=== PATIENT | female | born 1950 | race Caucasian/White ===

== ENCOUNTER 2021-08-21 09:00 | Inpatient (IN) | payer OTHER ==
[2021-08-15 10:31] VITALS: BMI 30.2
[2021-08-21] MEDS ORDERED: BUPIVACAINE LIPOSOME/PF (EXPAREL) 266 MG/20 ML VIAL ONE (13:43)
[2021-08-21] MEDS ORDERED: MIDAZOLAM HCL 2 MG/2 ML SINGLE DOSE VIAL ONE ×2 (13:43→18:24)
[2021-08-21] MEDS ORDERED: BUPIVACAINE HCL/PF 0.5% (5MG/ML) 10 ML VIAL ONE (13:44)
[2021-08-21] MEDS ORDERED: SODIUM CHLORIDE 0.9% P/F 10 ML VIAL IJ ONE (13:44)
[2021-08-21] MEDS ORDERED: VANCOMYCIN 1,000 MG VIAL (RESTRICTED TO ID ONLY) ONE ×2 (14:09→16:20)
[2021-08-21] MEDS ORDERED: oxyCODONE HCL 5 MG TABLET PO PRN (14:46)
[2021-08-21] MEDS ORDERED: ACETAMINOPHEN 1000 MG/100 ML BAG IVPB ONE (14:46)
[2021-08-21] MEDS ORDERED: ONDANSETRON 4 MG/2 ML VIAL IVPUSH PRN ×2 (14:46→19:41)
[2021-08-21] MEDS ORDERED: LACTATED RINGERS SOLUTION 1,000 ML IV SCH ×2 (15:00→19:45)
[2021-08-21] MEDS ORDERED: BUPIVICAINE 0.25%/MORPH PF/KETOROLAC - 51ML DISP.SYRINGE IA ONE ×3 (15:54→19:15)
[2021-08-21] MEDS ORDERED: BUPIVACAINE HCL 50 ML ONE (16:04)
[2021-08-21] MEDS ORDERED: ePHEDrine SULFATE 50 MG/1 ML AMPULE ONE (16:24)
[2021-08-21] MEDS ORDERED: ceFAZolin SODIUM 1 GM VIAL ONE (16:25)
[2021-08-21] MEDS ORDERED: TRANEXAMIC ACID 1000 MG/10 ML VIAL ONE ×2 (16:25→18:52)
[2021-08-21] MEDS ORDERED: PROPOFOL 20 ML ONE ×3 (16:51)
[2021-08-21] MEDS ORDERED: VANCOMYCIN 1,000 MG VIAL (RESTRICTED TO ID ONLY) IVPB ONE (19:00)
[2021-08-21] MEDS ORDERED: ACETAMINOPHEN INJECTION 100 ML IVPB ONE (19:18)
[2021-08-21] MEDS ORDERED: MAG HYDROX/AL HYDROX/SIMETH 30 ML UNIT-DOSE CUP PO PRN (19:41)
[2021-08-21] MEDS: KETOROLAC TROMETHAMINE 30 MG/1 ML VIAL IVPUSH SCH ×2 (20:15→21:21)
[2021-08-21] MEDS: GABAPENTIN 300 MG CAPSULE PO SCH (21:44)
[2021-08-21] MEDS: ACETAMINOPHEN 500 MG TABLET (FP) PO SCH (21:46)
[2021-08-21] MEDS: SENNOSIDES/DOCUSATE COMBO (SENNA PLUS) TABLET (UD) PO SCH (21:47)
[2021-08-22] MEDS: KETOROLAC TROMETHAMINE 30 MG/1 ML VIAL IVPUSH SCH (02:40)
[2021-08-22] MEDS: ACETAMINOPHEN 500 MG TABLET (FP) PO SCH ×4 (02:55→15:02)
[2021-08-22 08:48] LABS: CALCIUM 8.8 mg/dl (8.5-10); CREATININE 0.5 mg/dl (0.55-1.3)
[2021-08-22 09:45] LABS: HEMATOCRIT 35.3 % (32.4-45.2); HEMOGLOBIN 12.4 GM/dL (10.7-15.3); MCH 31.2 pg (25.7-33.7); MEAN CELL VOLUME 88.9 fl (80-96); MEAN PLT VOLUME 9.7 fl (7.5-11.1); PLATELET COUNT 152 10^3/uL (134-434); RBC 3.97 M/mm3 (3.60-5.2); RDW 14.3 % (11.6-15.6); WHITE BLOOD COUNT 6.2 K/mm3 (4.0-10.0)
[2021-08-22] MEDS: ASPIRIN 325 MG TABLET PO SCH ×2 (09:48→21:40)
[2021-08-22] MEDS: PANTOPRAZOLE 40 MG TABLET PO SCH (09:48)
[2021-08-22] MEDS: MULTIVITAMINS (DAILY MVI) TABLET (FP) PO SCH (09:48)
[2021-08-22] MEDS: SENNOSIDES/DOCUSATE COMBO (SENNA PLUS) TABLET (UD) PO SCH ×2 (09:48→21:40)
[2021-08-22] MEDS: GABAPENTIN 300 MG CAPSULE PO SCH ×2 (09:48→21:40)
[2021-08-22] MEDS ORDERED: POTASSIUM CHLORIDE TABS 20 MEQ TABLET.ER (FP) PO ONE (11:00)
[2021-08-22] MEDS ORDERED: ceFAZolin SODIUM 1 GM VIAL ONE ×3 (12:06→22:37)
[2021-08-22] MEDS ORDERED: DEXTROSE 5%-WATER 100 ML IVPB ONE ×3 (12:07→22:37)
[2021-08-22] MEDS: CEFAZOLIN 2 GM in DEXTROSE 5%-WATER 100 ML IVPB SCH ×2 (12:25→17:33)
[2021-08-22] MEDS: oxyCODONE HCL 5 MG TABLET PO PRN ×2 (12:29→19:54)
[2021-08-22] MEDS ORDERED: PATIENT'S OWN MEDICATION (NON-FORMULARY) (Atenolol/Chlorthalidone [Atenolol-Chlorthalidone PO SCH (13:15)
[2021-08-22] MEDS: amLODIPine BESYLATE 10 MG TABLET (FP) PO SCH (13:55)
[2021-08-22] MEDS: INSULIN (NOVOLOG) ASPART 100 UNITS/ML 10ML VIAL SQ SCH (17:03)
[2021-08-22] MEDS: ATORVASTATIN CA 10 MG TABLET (FP) PO SCH (21:40)
[2021-08-22] MEDS ORDERED: SOLIFENACIN SUCCINATE 5 MG TAB PO SCH (22:00)
[2021-08-22] MEDS ORDERED: PATIENT'S OWN MEDICATION (NON-FORMULARY) (Pravastatin Sodium 40 MG Tablet) PO SCH (22:00)
[2021-08-23] MEDS: CEFAZOLIN 2 GM in DEXTROSE 5%-WATER 100 ML IVPB SCH (02:00)
[2021-08-23] MEDS: ACETAMINOPHEN 500 MG TABLET (FP) PO SCH ×5 (03:00→21:19)
[2021-08-23] MEDS: INSULIN (NOVOLOG) ASPART 100 UNITS/ML 10ML VIAL SQ SCH ×5 (06:59→21:36)
[2021-08-23 07:56] LABS: HEMATOCRIT 32.2 % (32.4-45.2); HEMOGLOBIN 10.9 GM/dl (10.7-15.3); MCH 30.3 pg (25.7-33.7); PLATELET COUNT 128 10^3/uL (134-434); RBC 3.61 M/mm3 (3.60-5.2); RDW 12.8 % (11.6-15.6); WHITE BLOOD COUNT 6.6 K/mm3 (4.0-10.8)
[2021-08-23 08:10] LABS: CALCIUM 8.3 mg/dl (8.5-10); CREATININE 0.5 mg/dl (0.55-1.3)
[2021-08-23] MEDS: oxyCODONE HCL 5 MG TABLET PO PRN (08:10)
[2021-08-23] MEDS: SOLIFENACIN SUCCINATE 5 MG TAB PO SCH (09:21)
[2021-08-23] MEDS: MULTIVITAMINS (DAILY MVI) TABLET (FP) PO SCH (09:21)
[2021-08-23] MEDS: amLODIPine BESYLATE 10 MG TABLET (FP) PO SCH (09:21)
[2021-08-23] MEDS: GABAPENTIN 300 MG CAPSULE PO SCH ×2 (09:21→21:18)
[2021-08-23] MEDS: SENNOSIDES/DOCUSATE COMBO (SENNA PLUS) TABLET (UD) PO SCH ×2 (09:22→21:18)
[2021-08-23] MEDS: ATENOLOL 50 MG TABLET (FP) PO SCH (09:22)
[2021-08-23] MEDS: PANTOPRAZOLE 40 MG TABLET PO SCH (09:22)
[2021-08-23] MEDS: ASPIRIN 325 MG TABLET PO SCH ×2 (09:22→21:18)
[2021-08-23] MEDS ORDERED: POTASSIUM CHLORIDE ORAL LIQUID 20 MEQ/15 ML PO ONE (09:40)
[2021-08-23] MEDS ORDERED: POTASSIUM CHLORIDE TABS 20 MEQ TABLET.ER (FP) PO ONE (09:40)
[2021-08-23] MEDS ORDERED: PATIENT'S OWN MEDICATION (NON-FORMULARY) (Atenolol/Chlorthalidone [Atenolol-Chlorthalidone PO SCH (10:00)
[2021-08-23] MEDS ORDERED: CHLORTHALIDONE 25 MG TABLET PO SCH (10:00)
[2021-08-23] MEDS ORDERED: PATIENT'S OWN MEDICATION (NON-FORMULARY) (Alendronate Sodium [Alendronate Sodium] 70 MG Ta PO SCH (10:00)
[2021-08-23] MEDS ORDERED: PATIENT'S OWN MEDICATION (NON-FORMULARY) (Mirabegron [Myrbetriq] 25 MG Tab.Er.24h) PO SCH (10:00)
[2021-08-23 15:13] LABS: CALCIUM 8.3 mg/dl (8.5-10); CREATININE 0.7 mg/dl (0.55-1.3)
[2021-08-23] MEDS: POTASSIUM CHLORIDE ORAL LIQUID 20 MEQ/15 ML PO SCH ×2 (15:48→21:19)
[2021-08-23] MEDS: ATORVASTATIN CA 10 MG TABLET (FP) PO SCH (21:18)
[2021-08-24] MEDS: ACETAMINOPHEN 500 MG TABLET (FP) PO SCH ×2 (03:31→08:47)
[2021-08-24] MEDS: INSULIN (NOVOLOG) ASPART 100 UNITS/ML 10ML VIAL SQ SCH (07:08)
[2021-08-24 08:21] LABS: CALCIUM 8.7 mg/dl (8.5-10); CREATININE 0.4 mg/dl (0.55-1.3)
[2021-08-24] MEDS: oxyCODONE HCL 5 MG TABLET PO PRN (08:48)
[2021-08-24] MEDS: PANTOPRAZOLE 40 MG TABLET PO SCH (09:49)
[2021-08-24] MEDS: ATENOLOL 50 MG TABLET (FP) PO SCH (09:50)
[2021-08-24] MEDS: GABAPENTIN 300 MG CAPSULE PO SCH (09:50)
[2021-08-24] MEDS: SOLIFENACIN SUCCINATE 5 MG TAB PO SCH (09:50)
[2021-08-24] MEDS: MULTIVITAMINS (DAILY MVI) TABLET (FP) PO SCH (09:50)
[2021-08-24] MEDS: amLODIPine BESYLATE 10 MG TABLET (FP) PO SCH (09:50)
[2021-08-24] MEDS: SENNOSIDES/DOCUSATE COMBO (SENNA PLUS) TABLET (UD) PO SCH (09:50)
[2021-08-24] MEDS: ASPIRIN 325 MG TABLET PO SCH (09:50)
[2021-08-24 10:54] VITALS: BP 101/60; PULSE 68; TEMP 98.5
== END 2021-08-24 12:37 | disposition home or self-care (01) | DRG 302 ==
LOC: FM/S 11:01
PROVIDERS: ADMIT Orthopaedic Surgery Sports Medicine; ATTEND Nurse Practitioner Acute Care
PROC: 0SRC0J9 Replacement of Right Knee Joint with Synthetic Substitute, Cemented, Open Approach (ICD-10-PCS; principal; 2021-08-21 16:49)
DX: M17.11 Unilateral primary osteoarthritis, right knee (principal); I10 Essential (primary) hypertension; E78.5 Hyperlipidemia, unspecified; E11.9 Type 2 diabetes mellitus without complications; E87.6 Hypokalemia
CPT/HCPCS: 36415; 73560-TC-RT-FY; 80048; 82962; 85027; 88305-TC; 88311-TC; 94760; 97010-GP; 97116-GP; 97162-GP; J0131

== ENCOUNTER 2022-12-10 06:15 | Inpatient (IN) | payer MEDICARE ==
[2022-12-10 06:57] VITALS: BMI 31.1
[2022-12-10] MEDS ORDERED: PROPOFOL 40 ML ONE (07:07)
[2022-12-10] MEDS ORDERED: MIDAZOLAM HCL 2 MG/2 ML SINGLE DOSE VIAL ONE ×2 (07:07→08:31)
[2022-12-10] MEDS ORDERED: BUPIVACAINE HCL 50 ML ONE (07:12)
[2022-12-10] MEDS ORDERED: VANCOMYCIN 1,000 MG VIAL (RESTRICTED TO ID ONLY) ONE ×2 (07:14→08:30)
[2022-12-10] MEDS ORDERED: BUPIVACAINE HCL/PF 0.5% (5 MG/ML) 30 ML VIAL IJ ONE (07:15)
[2022-12-10] MEDS ORDERED: BUPIVACAINE LIPOSOME/PF (EXPAREL) 266 MG/20 ML VIAL ONE (07:16)
[2022-12-10] MEDS ORDERED: DEXAMETHASONE SOD PHOSPHATE 4 MG/1 ML VIAL ONE (08:30)
[2022-12-10] MEDS ORDERED: KETOROLAC TROMETHAMINE 30 MG/1 ML VIAL ONE (08:30)
[2022-12-10] MEDS ORDERED: ONDANSETRON 4 MG/2 ML VIAL ONE (08:30)
[2022-12-10] MEDS ORDERED: ceFAZolin SODIUM 1 GM VIAL ONE (08:30)
[2022-12-10] MEDS ORDERED: TRANEXAMIC ACID 1000 MG/10 ML VIAL IVPUSH ONE (09:00)
[2022-12-10] MEDS ORDERED: CEFAZOLIN 2 GM in DEXTROSE 5%-WATER - 50 ML IVPB ONE (09:00)
[2022-12-10] MEDS ORDERED: VANCOMYCIN 1 GM in D5W (PRE-DOCKED) 1,000 MG/250 ML IVPB ONE ×2 (09:00→21:00)
[2022-12-10] MEDS ORDERED: BUPIVICAINE 0.25%/MORPH PF/KETOROLAC - 51ML DISP.SYRINGE IA ONE (09:18)
[2022-12-10] MEDS ORDERED: ONDANSETRON 4 MG/2 ML VIAL IVPUSH PRN ×2 (11:09→11:23)
[2022-12-10] MEDS ORDERED: MAG HYDROX/AL HYDROX/SIMETH 30 ML UNIT-DOSE CUP PO PRN (11:09)
[2022-12-10] MEDS ORDERED: oxyCODONE HCL 5 MG TABLET PO PRN ×2 (11:23)
[2022-12-10] MEDS: ACETAMINOPHEN 1000 MG/100 ML BAG IVPB ONE ×2 (11:43→15:47)
[2022-12-10] MEDS: LACTATED RINGERS SOLUTION 1,000 ML IV SCH (16:57)
[2022-12-10] MEDS: CEFAZOLIN SODIUM 2 GM in DEXTROSE 5%-WATER 100 ML IVPB SCH (16:57)
[2022-12-10] MEDS: KETOROLAC TROMETHAMINE 30 MG/1 ML VIAL IVPUSH SCH (18:15)
[2022-12-10] MEDS: ACETAMINOPHEN 500 MG TABLET (FP) PO SCH (18:15)
[2022-12-10] MEDS: GABAPENTIN 300 MG CAPSULE PO SCH (21:22)
[2022-12-10] MEDS: oxyCODONE HCL 10 MG SUSTAINED ACTING TABLET PO SCH (21:22)
[2022-12-10] MEDS: CALCIUM (OYSTER SHELL) 500 MG TABLET (FP) PO SCH (21:22)
[2022-12-10] MEDS: SENNOSIDES/DOCUSATE COMBO (SENNA PLUS) TABLET (UD) PO SCH ×2 (21:22→21:27)
[2022-12-11] MEDS: KETOROLAC TROMETHAMINE 30 MG/1 ML VIAL IVPUSH SCH
[2022-12-11] MEDS: CEFAZOLIN SODIUM 2 GM in DEXTROSE 5%-WATER 100 ML IVPB SCH ×2 (00:16→09:14)
[2022-12-11] MEDS: ACETAMINOPHEN 500 MG TABLET (FP) PO SCH ×3 (06:42→12:48)
[2022-12-11 08:27] LABS: HEMOGLOBIN 11.4 G/dL (10.7-15.3); MCH 30.5 pg (25.7-33.7); MCHC 34.5 g/dl (32.0-36.0); MEAN CELL VOLUME 88.2 fl (80-96); PLATELET COUNT 154.1 10^3/uL (134-434); RBC 3.74 10^6/uL (3.60-5.2); RDW 13.8 % (11.6-15.6); WHITE BLOOD COUNT 7.3 10^3/uL (4.0-10.8)
[2022-12-11 08:33] LABS: CALCIUM 8.6 mg/dl (8.5-10); CREATININE 0.6 mg/dl (0.55-1.3)
[2022-12-11 08:55] VITALS: RESP 18
[2022-12-11] MEDS: GABAPENTIN 300 MG CAPSULE PO SCH (09:14)
[2022-12-11] MEDS: CALCIUM (OYSTER SHELL) 500 MG TABLET (FP) PO SCH (09:15)
[2022-12-11] MEDS: SENNOSIDES/DOCUSATE COMBO (SENNA PLUS) TABLET (UD) PO SCH (09:15)
[2022-12-11] MEDS: oxyCODONE HCL 10 MG SUSTAINED ACTING TABLET PO SCH (09:15)
[2022-12-11] MEDS ORDERED: APIXABAN 2.5 MG TABLET PO SCH (10:00)
[2022-12-11] MEDS ORDERED: PANTOPRAZOLE 40 MG TABLET PO SCH (10:00)
[2022-12-11] MEDS ORDERED: PATIENT'S OWN MEDICATION (NON-FORMULARY) (Lipase/Protease/Amylase [Zenpep Dr 40,000 Unit C PO SCH (10:00)
[2022-12-11] MEDS ORDERED: MULTIVITAMINS (DAILY MVI) TABLET (FP) PO SCH (10:00)
[2022-12-11] MEDS ORDERED: CHLORTHALIDONE 25 MG TABLET PO SCH (10:00)
[2022-12-11] MEDS ORDERED: PATIENT'S OWN MEDICATION (NON-FORMULARY) (Vibegron [Gemtesa] 75 MG Tablet) PO SCH (10:00)
[2022-12-11] MEDS ORDERED: ATENOLOL 50 MG TABLET (FP) PO SCH (10:00)
[2022-12-11] MEDS ORDERED: PATIENT'S OWN MEDICATION (NON-FORMULARY) (Atenolol/Chlorthalidone [Atenolol-Chlorthalidone PO SCH (10:00)
[2022-12-11] MEDS ORDERED: POTASSIUM CHLORIDE TABS 10 MEQ TABLET.ER (FP) PO SCH (10:00)
[2022-12-11] MEDS: LACTATED RINGERS SOLUTION 1,000 ML IV SCH (12:48)
[2022-12-11 16:31] VITALS: BP 118/64; PULSE 60; TEMP 98.9
[2022-12-11] MEDS ORDERED: ROSUVASTATIN CA 20 MG TABLET PO SCH (22:00)
== END 2022-12-11 16:40 | disposition home or self-care (01) | DRG 470 ==
LOC: FM/S 06:15 → EDSTATUS 10:00 → FM/S 12:36
PROVIDERS: ADMIT Internal Medicine; ATTEND Internal Medicine
PROC: 8E0Y0CZ Robotic Assisted Procedure of Lower Extremity, Open Approach (ICD-10-PCS; 2022-12-10)
PROC: 0SRD0JZ Replacement of Left Knee Joint with Synthetic Substitute, Open Approach (ICD-10-PCS; principal; 2022-12-10 08:33)
DX: M17.12 Unilateral primary osteoarthritis, left knee (principal); I10 Essential (primary) hypertension; I48.91 Unspecified atrial fibrillation; K21.9 Gastro-esophageal reflux disease without esophagitis
CPT/HCPCS: 36415; 73560-TC-LT-FY; 80048; 85027; 88305-TC; 88311-TC; 94760; 97010-GP; 97116-GP; 97162-GP; C1776; C1889; C9803-CS; U0003; U0005